=== PATIENT | female | born 1995 | race Two or more races ===

== ENCOUNTER 2017-07-16 18:59 | Emergency (ER) | payer OTHER ==
--- NOTE | 2017-07-16 19:23 | EDM.PDOC ---
ED HPI GENERAL MEDICAL PROBLEM - General Chief Complaint: Skin Complaint Stated Complaint: POSS CHICKEN POX Time Seen by Provider: 07/16/17 19:10 - History of Present Illness INITIAL COMMENTS - FREE TEXT/NARRATIVE: 21-year-old female presents emergency room with what she thinks her chickenpox. Patient's roommate was diagnosed with chickenpox. The patient has not been immunized and she had a viral illness for last 2 days and now is breaking out in a rash the rash is not started to crust over at this point she's had a mild headache and is generally been achy. Past medical history is otherwise unremarkable. Her past medical history is unremarkable she absolutely denies any possibility of . The patient recently came over here from the [facility] Generalized Pain Score (Numeric/FACES): 6 - Related Data Allergies Allergy/AdvReac Type Severity Reaction Status Date / Time No Known Allergies Allergy Verified 07/16/17 19:06 Home Meds: Home Meds valACYclovir [Valtrex] 1,000 mg PO Q8H #21 tablet 07/16/17 [Rx] Past Medical History - Past Health History Medical/Surgical History: Denies Medical/Surgical History Social & Family History - Tobacco Use Smoking Status *Q: Never Smoker - Recreational Drug Use Recreational Drug Use: No ED ROS GENERAL - Review of Systems Review Of Systems: See Below Constitutional: Reports: Fever, Chills, Other (Patient and had fevers chills last couple of days but this is resolved) HEENT: Reports: No Symptoms Respiratory: Reports: No Symptoms Cardiovascular: Reports: No Symptoms Endocrine: Reports: No Symptoms GI/Abdominal: Reports: No Symptoms : Reports: No Symptoms Musculoskeletal: Reports: Other (She has some muscle aches) Skin: Reports: Other (He is broke out multiple lesions feel her face a few on her back few on her chest not have breakout yet) Neurological: Reports: No Symptoms, Headache (Very mild headache). Denies: Confusion, Dizziness Psychiatric: Reports: No Symptoms Hematologic/Lymphatic: Reports: No Symptoms Immunologic: Reports: No Symptoms ED EXAM, SKIN/RASH Exam: See Below Exam Limited By: No Limitations General Appearance: Alert, No Apparent Distress Eye Exam: Bilateral Eye: EOMI, Normal Inspection Ears: Normal External Exam, Normal Canal, Hearing Grossly Normal, Normal TMs, Other (She is a lesion developing in her left ear canal) Throat/Mouth: Normal Inspection, Normal Lips, Normal Teeth, Normal Gums, Normal Oropharynx, Normal Voice, No Airway Compromise Head: Atraumatic, Normocephalic Neck: Normal Inspection, Supple, Non-Tender, Full Range of Motion. No: Lymphadenopathy (L), Lymphadenopathy (R) Respiratory/Chest: No Respiratory Distress, Lungs Clear, Normal Breath Sounds Cardiovascular: Regular Rate, Rhythm, No Edema, No Murmur GI/Abdominal: Normal Bowel Sounds, Soft, Non-Tender Back Exam: Normal Inspection Extremities: Normal Inspection Psychiatric: Normal Affect, Normal Mood Skin: Other (Multiple or lesions noted crusted over she appears to be in the early stage of the first crop with scattered lesions over her back and upper chest and face) Lymphatic: No Adenopathy Course - Vital Signs Last Recorded V/S: Last Vital Signs Temp 36.6 C 07/16/17 19:07 Pulse 87 07/16/17 19:07 Resp BP 117/99 H 07/16/17 19:07 Pulse Ox 99 07/16/17 19:07 - Re-Assessments/Exams Free Text/Narrative Re-Assessment/Exam: 07/16/17 19:36 Patient appears to have varicelliform chickenpox early infection she had a roommate that was just diagnosed with this risk of household transmission is 90 % in this scenario she is broken out with lesions consistent with chickenpox early stages have not crusted otorrhea are scattered fairly mild at this point she had a fever yesterday generally felt poor she's got a mild headache should be started on valacyclovir 1 g 3 times a day for 7 days Departure - Departure Time of Disposition: 19:37 Disposition: Home, Self-Care 01 Clinical Impression: Chicken pox - Discharge Information Prescriptions: valACYclovir [Valtrex] 1,000 mg PO Q8H #21 tablet Referrals: PCP,Not In Area [Primary Care Provider] - Forms: ED Department Discharge Additional Instructions: Return to emergency room with any questions problems worsening symptoms. Return with severe headache worsening illness fevers or a bad cough, return with any other signs of the worsening infection. Follow-up with your regular doctor on Thursday. Stay off work or school for the rest of this week. You been started on Valacyclovir take one 3 times a day started tonight take until all gone
== END 2017-07-16 19:52 | disposition home or self-care (01) ==
LOC: JD.ED 18:59
DX: B01.9 Varicella without complication (principal)
CPT/HCPCS: 99283